=== PATIENT | male | born 1990 | race Caucasian/White ===

== ENCOUNTER → 2023-03-01 | Outpatient (REF) | payer OTHER ==
[2023-03-01 14:38] LABS: SEMEN APPEARANCE OPAQUE (OPAQUE); SEMEN VISCOSITY LIQUID (LIQUID); SEMEN VOLUME 1.7 ml (2.0-5.0); SEMEN pH 8.5 (7.0-8.0); WBC CONCENTRATION <=1 M/ml (<=1 M/ml)
== END ==
LOC: M LAB REF 13:33
PROVIDERS: ATTEND Urology
DX: Z30.2 Encounter for sterilization (principal)

== ENCOUNTER → 2025-06-18 | Outpatient (CLI) | payer OTHER ==
[~2025-06-18] MED LIST: FLUTISP INH; LORA-1041 PO
== END ==
LOC: M PLARAD 07:20
PROVIDERS: ATTEND Physical Medicine & Rehabilitation
DX: M54.2 Cervicalgia (principal); M25.511 Pain in right shoulder

== ENCOUNTER 2025-07-29 08:19 | Day surgery (SDC) | payer OTHER ==
[~2025-07-29] VITALS: Ht 165.1 cm; Wt 68.3 kg
[~2025-07-29 08:19] MED LIST changes: +dexAMETHasone 4 MG/ML 1 ML VIAL IV ONE
[2025-07-29] MEDS ORDERED: LR 1,000 ML IV SCH (08:35)
[2025-07-29] MEDS ORDERED: ONDANSETRON 4MG/2ML VIAL As Ordered ONE (08:45)
[2025-07-29] MEDS ORDERED: LIDOCAINE 2% 100 MG/5 ML SDV (FOR ANES.) As Ordered ONE (08:45)
[2025-07-29] MEDS ORDERED: ACETAMINOPHEN 1000MG/100ML IV BAG As Ordered ONE (08:45)
[2025-07-29] MEDS ORDERED: dexmedeTOMIDine (4 MCG/ML) 200 MCG/50 ML BTL As Ordered ONE (08:45)
[2025-07-29] MEDS ORDERED: dexAMETHasone 4 MG/ML 1 ML VIAL As Ordered ONE (08:46)
[2025-07-29] MEDS ORDERED: MIDAZOLAM INJ 2 MG/2 ML VIAL As Ordered ONE (08:46)
[2025-07-29] MEDS ORDERED: ROCURONIUM BROMIDE 50MG/5ML VIAL As Ordered ONE (08:55)
[2025-07-29] MEDS: SODIUM CHLORIDE 0.9% NASAL GEL 15GM (AYR) As Ordered ONE (09:12)
[2025-07-29] MEDS ORDERED: KETOROLAC 30 MG/ML 1 ML VIAL As Ordered ONE (09:14)
[2025-07-29] MEDS: METHYLENE BLUE 0.5% (5 MG/ML) 10 ML AMP As Ordered ONE (11:24)
[2025-07-29] MEDS: EPINEPHrine 1 MG/ML INJ 30 ML MD-VIAL As Ordered ONE (11:25)
[2025-07-29] MEDS ORDERED: SUGAMMADEX SODIUM 200 MG/2 ML VIAL As Ordered ONE (11:38)
[2025-07-29] MEDS: LIDOCAINE W/EPINEPHrine 1% 20 ML VIAL As Ordered ONE (11:58)
[2025-07-29] MEDS: OXYMETAZOLINE 0.05% NASAL SPRAY As Ordered ONE (12:13)
[2025-07-29] MEDS: HYDROMORPHONE HCL 0.5 MG/0.5 ML SYRINGE IV PRN (13:14)
[2025-07-29] MEDS: ONDANSETRON 4MG/2ML VIAL IV PRN (13:14)
[2025-07-29 14:15] VITALS: BP 111/68; TEMP 97.6; O2SAT 97
== END 2025-07-29 14:18 | disposition home or self-care (01) ==
LOC: M SDC 08:19
PROVIDERS: ATTEND Otolaryngology
DX: J34.2 Deviated nasal septum (principal); J34.3 Hypertrophy of nasal turbinates; R09.81 Nasal congestion; Z79.899 Other long term (current) drug therapy
CPT/HCPCS: 30520; 30802; 88300; J0131; J0165; J1100; J1171; J1885; J2250; J2405; J3010; J3490